=== PATIENT | female | born 1970 ===

== ENCOUNTER 2023-08-13 16:22 | Emergency (ER) | payer SELFPAY ==
[2023-08-13 16:30] VITALS: BMI 28.0
[2023-08-13 16:34] VITALS: BP 119/75; PULSE 77; RESP 16; TEMP 37.1; O2SAT 96
--- NOTE | 2023-08-13 16:37 | PC.NURSE ---
SLAG SKIMMER Note: Pt arrived to the ED with PD. Pt talks about how she can't get the thought of [her] daughter shooting herself in the forehead. out of her mind. PT states that they're not on any medications, but urges the nurse and this SLAG SKIMMER that she wants to be on meds.
--- NOTE | 2023-08-13 16:41 | PC.NURSE ---
COMMUNITY RELATIONS ADVISOR Note: Reji Rodriguez RN, gave pt cordless hospital phone for personal use.
--- NOTE | 2023-08-13 17:01 | PC.NURSE ---
spoke with police office. patient blew a .046 this was charted incorrectly in the triage note. informed provider and DIGITAL EDITOR
--- NOTE | 2023-08-13 17:20 | PC.NURSE ---
FINAL EXPENSE AGENT note: Patient is asking to call family in [place] so that her family knows she is safe. She would like her emotional support animal/dog. Patient states she wants to go home. I told her I would check in with her RN to see if she can call family. Patient wants to know about the doctor, if that doctor is a good person, a nice person. I tried to reassure her that the doctor is a great person. Patient is muttering that this is such bull shit, and oh my god, this isn't normal. This isn't okay... Wants to go home keeps repeating this. Doesn't want to be here. Explained to patient that right now this is where she is and it's what we are doing. Offered patient a snack, offered to turn down the lights. Patient refused said You guys want me to go to sleep so I can sleep for days and you will take my dog take my car. I will wake up and not have my dog or my car or a ride home. Explained I just wanted her to get some rest. Patient sitting at edge of bed w/ blanket.
[2023-08-13 17:23] LABS: Add Manual Diff / Slide Review NO; Basophils Absolute Auto 0 /uL (0-100); Basophils Percent Auto 0.6 % (0-2); Eosinophils Absolute Auto 100 /uL (0-450); Hematocrit 40.2 % (36-46); Lymphocytes Absolute Auto 2100 /uL (1100-4500); Lymphocytes Percent Auto 28.9 % (25-40); Mean Corpuscular HGB Conc 34.9 % (30-36); Mean Corpuscular Hemoglobin 30.3 PG (26-34); Mean Corpuscular Volume 86.9 fL (80-100); Monocytes Absolute Auto 400 /uL (0-900); Monocytes Percent Auto 5.5 % (3-14); Neutrophils Absolute Auto 4600 /uL (1500-7000); Platelet Count 280 X10^3/uL (150-400); Red Blood Cell Count 4.63 X10^6/uL (4.0-5.2); Red Cell Distribution Width 12.4 % (11.6-14.8); White Blood Cell Count 7.2 X10^3/uL (4.5-11.0)
--- NOTE | 2023-08-13 17:39 | PC.NURSE ---
Addendum entered by Dominga Martinez R.N. 08/13/23 20:38: Patient had been resting quietly in the room until the last 15 minutes when she got off the gurney and is again asking about the provider and that its my turn. Explained process to patient and that provider will be with her as soon as possible, that he is responsible for all the patients in the department and know she wants to be seen. Patient stating she needs to be released to get to her car so my ex doesn't get his way. Addendum entered by Dominga Martinez R.N. 08/13/23 18:04: Patient came to the door asking can the preacher clear me to go? Educated patient that only the doctor can because they are licensed to practice medicine. Patient stated I believe in God and he's a doctor! CASSIDY and solar site assessment specialist able to calm patient down and returned her to bed. Addendum entered by Dominga Martinez R.N. 08/13/23 18:00: Patient's sister in law and solar site assessment specialist present in the room. Patient is from [place] and recently got here. Patient's CASSIDY is leaving today for a trip out of state and has concerns about where patient will go if released, understands why the dog cannot be present in the ED. Warm blanket given to patient. Original Note: Sitting 1:1 with patient. Wanting her emotional support dog and phone. Explained process to patient, that provider has to evaluate her before she can leave and to have access to purse and phone. Educated patient that dog will be safe until she is discharged. Patient's family asking for patient's keys, patient requesting to see family first. Patient agitated and crying while sitting with family.
[2023-08-13 17:44] LABS: Acetaminophen < 10 ug/mL (10-30); Alanine Aminotransferase 52 IU/L (<35); Albumin 4.9 g/dL (3.5-5.0); Albumin Globulin Ratio 1.1 (1.0-2.8); Alkaline Phosphatase 98 U/L (38-126); Aspartate Aminotransferase 45 IU/L (14-36); BUN Creatinine Ratio 17.3 (6-22); Bilirubin Total 0.7 mg/dL (0.2-1.3); Blood Urea Nitrogen 13 mg/dL (7-17); Calcium 9.6 mg/dL (8.4-10.2); Carbon Dioxide 23 mmol/L (22-32); Chloride 104 mmol/L (98-107); Estimated Glomerular Filt Rate > 60 mL/min (>60); Ethanol (ETOH) 48 mg/dL; Globulin 4.4 g/dL (1.7-4.1); Glucose 97 mg/dL (70-100); HEMOLYSIS < 15 (0-50); Potassium 4.1 mmol/L (3.4-5.1); Salicylate < 1.0 mg/dL (<20); Sodium 139 mmol/L (137-145); Total Protein 9.3 g/dL (6.3-8.2)
[2023-08-13 17:57] LABS: Ur Creatinine Normal (Normal); Ur Specific Gravity Normal (Normal); Urine pH Normal (Normal)
[2023-08-13 17:58] LABS: Bilirubin Urine UA NEGATIVE (NEGATIVE); Color Urine UA YELLOW; Glucose Urine UA NEGATIVE (Negative); Ketones Urine UA NEGATIVE (NEGATIVE); Leukocyte Esterase Urine UA 2+ (NEGATIVE); Nitrite Urine UA NEGATIVE (Negative); Occult Blood Urine UA NEGATIVE (Negative); Protein Urine UA NEGATIVE (Negative); Specific Gravity Urine UA 1.025 (1.000-1.035); UR Morphine/Opiate cutoff 300 Negative (Negative); Urine Amphetamines Positive (Negative); Urine Barbiturates Negative (Negative); Urine Benzodiazepines Negative (Negative); Urine Cocaine Negative (Negative); Urine MDMA Positive (Negative); Urine Methadone Negative (Negative); Urine Methamphetamines Positive (Negative); Urine Oxycodone Negative (Negative); Urine Phencyclidine Negative (Negative); Urine Tetrahydrocannabinol Negative (Negative); Urine Tricyclic Antidepressant Negative (Negative)
[2023-08-13 18:13] LABS: TSH w/ Reflex to FT4 0.56 uIU/mL (0.47-4.68)
[2023-08-13 18:39] LABS: Appearance Urine UA Slightly Cloudy; Bacteria Urine Few (2-10); Culture Indicated Urine Specimen Cultured; RBC Urine 0-1/HPF (0-5/HPF); Squamous Epithelial Cell Urine 1-5 /HPF (0-5/HPF); Trichomonas Urine 1-5/HPF (None Seen); WBC Urine 10-30/HPF (0-5/HPF); pH Urine UA 5.5 (4.5-8.0)
--- NOTE | 2023-08-13 20:42 | ED_ITS ---
HPI - Psych General Chief Complaint: Psychiatric Symptoms Stated Complaint: BRENDON Time Seen by Provider: 08/13/23 16:56 Source: police Mode of arrival: Ambulatory History of Present Illness HPI Narrative: 53F with history of depression presents by police for evaluation of suicidal concerns. She admits that she is depressed often as her daughter recently completed suicide. She states she is here to pickle cutter a car to help get her back to [place]. Per police report the patient had made some about the potential concern for self-harm. PD reports elevated alcohol level on initial evaluation. She is brought here for mental health evaluation. Patient denies suicidal ideation or homicidal ideation. She states that she is able to care for herself. She admits that she had a difficult moment but no longer feels any desire to hurt herself Review of Systems Review of Systems Narrative: GENERAL: Denies chills, fatigue, malaise, fever, sweats. HEENT: Denies sinus pain, ear pain, sore throat, difficulty swallowing, dizziness. RESPIRATORY: Denies dyspnea, cough, wheezing, hemoptysis, sputum. CARDIOVASCULAR: Denies chest pain, palpitations, orthopnea, edema, GASTROINTESTINAL: Denies nausea, vomiting, abdominal pain, diarrhea, const ipation, melena. : Denies dysuria, frequency, incontinence, hematuria, urinary retention. MUSCULOSKELETAL: denies weakness, joint pain, or bony pain SKIN: Denies rash, skin lesions, or other NEUROLOGIC: Denies weakness, headache, numbness, change in speech, confusion, seizures, incoordination. PSYCHIATRIC: See HPI 12 point review of systems is negative except for those stated above Patient History Social History Smoking Status: Former smoker Smoking Status: Former smoker tobacco type: cigars and vaping alcohol intake frequency: holidays/special occasions only Alcohol type: hard liquor Exam Narrative Exam Narrative: GENERAL: [53] year old patient appears stated age. Well-developed patient, in mild distress. HEAD: Atraumatic. Normocephalic. EYES: Pupils equal round and reactive. Extraocular motions intact. No scleral icterus. No injection or drainage. ENT: Nose without bleeding, purulent drainage. Throat without erythema, tonsillar hypertrophy or exudate. Airway patent. NECK: Trachea midline. Non tender CARDIOVASCULAR: Regular rate and rhythm without murmurs, gallops, or rubs. RESPIRATORY: Clear to auscultation. Breath sounds equal bilaterally. No wheezes, rales, or rhonchi. GASTROINTESTINAL: Abdomen soft, non-tender, nondistended. EXTREMITIES: No edema or joint tenderness. BACK: Nontender without deformity or crepitance. No flank tenderness. NEURO: AOx3. SKIN: No rash or erythema of visible areas Initial Vital Signs Initial Vital Signs: Vital Signs Temperature 98.7 F 08/13/23 16:34 Pulse Rate 77 08/13/23 16:34 Respiratory Rate 16 08/13/23 16:34 Blood Pressure 119/75 08/13/23 16:34 Pulse Oximetry 96 08/13/23 16:34 Oxygen Delivery Method Room Air 08/13/23 16:34 Course Orders Ordered: ED Orders 08/13/23 16:56 EKG-12 Lead Stat 08/13/23 16:57 Consult to ASSOCIATE WEB DEVELOPER - Target Developer Urgent 08/13/23 17:08 Acetaminophen Stat Complete Blood Count AUTO DIFF Stat Comprehensive Metabolic Panel Stat Ethanol (ETOH) Stat Salicylate Stat TSH w/ Reflex to FT4 Stat 08/13/23 17:46 Urinalysis and Microscopic Stat Urine Culture Stat Urine Drug Screen, Rapid Stat Vital Signs Vital signs: Vital Signs - 8 hr 08/13/23 20:54 Pulse Rate 91 H Respiratory Rate 18 Blood Pressure 134/78 Pulse Oximetry 99 Oxygen Delivery Method Room Air MDM - Psych Lab Data 08/13/23 17:08 08/13/23 17:08 Labs: Lab Results 08/13/23 08/13/23 08/13/23 Range/Units 17:08 17:08 17:08 WBC 7.2 (4.5-11.0) X10^3/uL RBC 4.63 (4.0-5.2) X10^6/uL Hgb 14.0 (12.0-16.0) g/dL Hct 40.2 (36-46) % MCV 86.9 (80-100) fL MCH 30.3 (26-34) PG MCHC 34.9 (30-36) % RDW 12.4 (11.6-14.8) % Plt Count 280 (150-400) X10^3/uL Neut % (Auto) 64.0 (50-75) % Lymph % (Auto) 28.9 (25-40) % Dunn % (Auto) 5.5 (3-14) % Eos % (Auto) 1.0 L (2-4) % Baso % (Auto) 0.6 (0-2) % Neut # (Auto) 4600 (1994-1182) /uL Lymph # (Auto) 2100 (8916-2039) /uL Dunn # (Auto) 400 (0-900) /uL Eos # (Auto) 100 (0-450) /uL Baso # (Auto) 0 (0-100) /uL Sodium 139 (137-145) mmol/L Potassium 4.1 (3.4-5.1) mmol/L Chloride 104 (98-107) mmol/L Carbon Dioxide 23 (22-32) mmol/L BUN 13 (7-17) mg/dL Creatinine 0.75 (0.52-1.04) mg/dL Estimated GFR > 60 (>60) mL/min BUN/Creatinine Ratio 17.3 (6-22) Glucose 97 (70-100) mg/dL Calcium 9.6 (8.4-10.2) mg/dL Total Bilirubin 0.7 (0.2-1.3) mg/dL AST 45 H (14-36) IU/L ALT 52 H (<35) IU/L Alkaline Phosphatase 98 (38-126) U/L Total Protein 9.3 H (6.3-8.2) g/dL Albumin 4.9 (3.5-5.0) g/dL Globulin 4.4 H (1.7-4.1) g/dL Albumin/Globulin Ratio 1.1 (1.0-2.8) TSH 0.56 (0.47-4.68) uIU/mL Urine Color Urine Appearance Urine pH (4.5-8.0) Ur Specific [place] (1.000-1.035) Urine Protein (Negative) Urine Glucose (UA) (Negative) g/dL Urine Ketones (NEGATIVE) Urine Occult Blood (Negative) Urine Nitrate (Negative) Urine Bilirubin (NEGATIVE) Urine Urobilinogen (0.2) E.U./dL Ur Leukocyte Esterase (NEGATIVE) Urine RBC (0-5/HPF) Urine WBC (0-5/HPF) Ur Squamous Epith Cells (0-5/HPF) Urine Bacteria (None) Urine Trichomonas (None Seen) Ur Culture Indicated? Salicylates < 1.0 (<20) mg/dL U Opiates 300ng/mL cut (Negative) Ur Oxycodone Screen (Negative) Urine Methadone Screen (Negative) Acetaminophen < 10 (10-30) ug/mL Ur Barbiturates Screen (Negative) U Tricyclic Antidepress (Negative) Ur Phencyclidine Scrn (Negative) Ur Amphetamines Screen (Negative) U Methamphetamines Scrn (Negative) Ur MDMA Scrn (Ecstasy) (Negative) U Benzodiazepines Scrn (Negative) Urine Cocaine Screen (Negative) U Marijuana (THC) Screen (Negative) Ethyl Alcohol 48 H ( - 10) mg/dL 08/13/23 08/13/23 Range/Units 17:46 17:46 WBC (4.5-11.0) X10^3/uL RBC (4.0-5.2) X10^6/uL Hgb (12.0-16.0) g/dL Hct (36-46) % MCV (80-100) fL MCH (26-34) PG MCHC (30-36) % RDW (11.6-14.8) % Plt Count (150-400) X10^3/uL Neut % (Auto) (50-75) % Lymph % (Auto) (25-40) % Dunn % (Auto) (3-14) % Eos % (Auto) (2-4) % Baso % (Auto) (0-2) % Neut # (Auto) (9303-6127) /uL Lymph # (Auto) (8417-3551) /uL Dunn # (Auto) (0-900) /uL Eos # (Auto) (0-450) /uL Baso # (Auto) (0-100) /uL Sodium (137-145) mmol/L Potassium (3.4-5.1) mmol/L Chloride (98-107) mmol/L Carbon Dioxide (22-32) mmol/L BUN (7-17) mg/dL Creatinine (0.52-1.04) mg/dL Estimated GFR (>60) mL/min BUN/Creatinine Ratio (6-22) Glucose (70-100) mg/dL Calcium (8.4-10.2) mg/dL Total Bilirubin (0.2-1.3) mg/dL AST (14-36) IU/L ALT (<35) IU/L Alkaline Phosphatase (38-126) U/L Total Protein (6.3-8.2) g/dL Albumin (3.5-5.0) g/dL Globulin (1.7-4.1) g/dL Albumin/Globulin Ratio (1.0-2.8) TSH (0.47-4.68) uIU/mL Urine Color Yellow Urine Appearance Slightly cloudy Urine pH 5.5 (4.5-8.0) Ur Specific [place] 1.025 (1.000-1.035) Urine Protein Negative (Negative) Urine Glucose (UA) Negative (Negative) g/dL Urine Ketones Negative (NEGATIVE) Urine Occult Blood Negative (Negative) Urine Nitrate Negative (Negative) Urine Bilirubin Negative (NEGATIVE) Urine Urobilinogen 1.0 (0.2) E.U./dL Ur Leukocyte Esterase 2+ H (NEGATIVE) Urine RBC 0-1/hpf (0-5/HPF) Urine WBC 10-30/hpf H (0-5/HPF) Ur Squamous Epith Cells 1-5 /hpf (0-5/HPF) Urine Bacteria Few (2-10) H (None) Urine Trichomonas 1-5/hpf H (None Seen) Ur Culture Indicated? Specimen cultured Salicylates (<20) mg/dL U Opiates 300ng/mL cut Negative (Negative) Ur Oxycodone Screen Negative (Negative) Urine Methadone Screen Negative (Negative) Acetaminophen (10-30) ug/mL Ur Barbiturates Screen Negative (Negative) U Tricyclic Antidepress Negative (Negative) Ur Phencyclidine Scrn Negative (Negative) Ur Amphetamines Screen Positive H (Negative) U Methamphetamines Scrn Positive H (Negative) Ur MDMA Scrn (Ecstasy) Positive H (Negative) U Benzodiazepines Scrn Negative (Negative) Urine Cocaine Screen Negative (Negative) U Marijuana (THC) Screen Negative (Negative) Ethyl Alcohol ( - 10) mg/dL [facility] Narrative Medical decision making narrative: []53 year old patient presents with depression and suicidal ideation Primary Historian: patient Labs reviewed and interpreted by myself: No leukocytosis or left shift, no signs of anemia, electrolytes within normal limits, very slight elevation of AST and ALT. Subtle suggestion on POC of UTI, patient denies any symptoms, we will hold on antibiotics, pending culture results. U tox does demonstrate amphetamines, methamphetamines and MDMA. Alcohol 48 Patient's symptoms improved over duration of stay with above-stated therapies. Patient was calms down relatively quickly upon arrival here stating that she just had an episode and feels better now. She demonstrates capacity to make her own decisions and speaks clearly without slurring words and is able to walk a straight line. We had extensive discussion at the bedside and patient denies any desire to speak with social work and just wants to go home. She is able to contract for safety Findings and discharge diagnosis discussed with patient/family followed by verbalization of understanding Return precautions discussed with patient/family whom verbalize understanding of diagnosis and plan Discharge Plan Departure Patient Disposition: Home Clinical Impression: Depression Instructions: Depression Activity Restrictions/Additional Instructions: *If you feel that you are entering into mental health crisis you have multiple options 1. Return to the ER immediately 2. Call the Crisis Line at [phone] 3. Send an anonymous text by sending the word Zev to [phone] 4. Navigate your web browser to [employer] to engage in anonymous chat with a mental health worker Referrals: [facility] [Outside] Stand Alone Forms: Patient Portal/API
[2023-08-13 20:54] VITALS: BP 134/78; PULSE 91; RESP 18; O2SAT 99
== END 2023-08-13 20:54 | disposition home or self-care (01) ==
PROVIDERS: Emergency Medicine; Emergency Provider Emergency Medicine
DX: F32.A Depression, unspecified (principal); R45.851 Suicidal ideations
CPT/HCPCS: 80053; 80305; 80320; 80329; 81001; 84443; 85025; 87077; 87086; 87186; 99284; G0480